=== PATIENT | female | born 1970 | race Caucasian/White ===

== ENCOUNTER 2017-10-10 07:27 | Emergency (ER) | payer MEDICARE ==
[2017-10-10 07:45] VITALS: O2SAT 99
--- NOTE | 2017-10-10 07:49 | ERPHSYRPT ---
- History of Present Illness Time Seen by Provider: 10/10/17 07:44 Source: patient Exam Limitations: no limitations Physician History: Pt has been c/o aching, pain in both lower extremities for one week. She states , she lives in a basement, has to take 5-6 steps to get down frequently, and started feeling some swelling and pain behind her knees, as well as diffuse aching in the whole leg on both sides. She denies fall, direct or indirect trauma, but has frequent back pain, without history of surgeries or major accident, injury to her back in the past. She denies abdominal or chest pain, SOB, fever,. nausea or other complaints, she has been taking Aleve for the pain. She is also c/o restless leg symptoms of her left leg recently at night. Method of Injury: unknown Quality: constant, aching Severity of Pain-Max: moderate Severity of Pain-Current: moderate Lower Extremities Pain: hip: bilateral, leg: bilateral, knee: bilateral, thigh: bilateral, foot: bilateral Modifying Factors: Improves With: nothing Associated Symptoms: none Allergies/Adverse Reactions: No Known Drug Allergies Allergy (Verified 10/10/17 07:45) Home Medications: Pantoprazole Sodium 40 mg PO DAILY 01/11/16 [History] Paroxetine HCl [Paxil] 40 mg PO DAILY 01/11/16 [History] Amitriptyline HCl 25 mg DAILY 10/10/17 [History] Hx Tetanus, Diphtheria Vaccination/Date Given: No Hx Influenza Vaccination/Date Given: No Hx Pneumococcal Vaccination/Date Given: No - Review of Systems Constitutional: No Symptoms Respiratory: No Symptoms Cardiac: No Symptoms Abdominal/Gastrointestinal: No Symptoms Musculoskeletal: Back Pain Skin: No Symptoms All Other Systems: Reviewed and Negative - Past Medical History Pertinent Past Medical History: Yes Neurological History: Seizures ENT History: No Pertinent History Cardiac History: No Pertinent History Respiratory History: No Pertinent History Endocrine Medical History: No Pertinent History Musculoskeletal History: Degenerative Disk Disease GI Medical History: GERD History: Other Psycho-Social History: Anxiety, Depression Female Reproductive Disorders: No Pertinent History Other Medical History: HOLE IN BLADDER FROM A FORCEPT DELIVERY 1995 - Past Surgical History Past Surgical History: Yes Musculoskeletal: Orthopedic Surgery Female Surgical History: Tubal Ligation - Social History Smoking Status: Never smoker Exposure to second hand smoke: No Drug Use: none Patient Lives Alone: No - Female History Hx Now: No - Nursing Vital Signs Nursing Vital Signs: Initial Vital Signs Temperature 97.0 F 10/10/17 07:37 Pulse Rate 81 10/10/17 07:37 Respiratory Rate 18 10/10/17 07:37 Blood Pressure 114/65 10/10/17 07:37 O2 Sat by Pulse Oximetry 99 10/10/17 07:37 Pain Scale Pain Intensity 8 - Physical Exam General Appearance: no apparent distress Eyes, Ears, Nose, Throat Exam: normal ENT inspection Neck Exam: normal inspection, non-tender Cardiovascular/Respiratory Exam: chest non-tender, normal breath sounds, regular rate/rhythm, heart sounds normal, no JVD, normal peripheral pulses Gastrointestinal/Abdominal Exam: non-tender, soft, no organomegaly Back Exam: normal inspection, other (no localized tenderness, or muscle spasms, straight leg raising normal on both sides., good equal strength.), No CVA tenderness, No vertebral tenderness, No rash Legs Exam: bilateral leg: normal inspection, pain (diffuse aching, no localized tenderness) Ankle Exam: bilateral ankle: normal inspection Foot Exam: bilateral foot: normal inspection DTR - Lower Extremities Exam: knee (R): 3+, knee (L): 3+, ankle (R): 3+, ankle ( L): 3+ Neuro/Tendon Exam: normal sensation, normal motor functions Mental Status Exam: alert, oriented x 3, cooperative Skin Exam: normal color, warm, dry, No rash SpO2 Interpretation: normal Oxygen Delivery: Room Air - Course Nursing assessment & vital signs reviewed: Yes - Radiology Exams L-Spine X-ray Interpretation: Interpreted by me, Negative - Radiology Ultrasound Exam Venous Lower Extremity Ultrasound: tele radiology report, negative Ordered Tests: Active Orders 24 hr Category Date Time Status LUMBAR LIMITED (2 OR 3 VIEWS) Stat Exams 10/10/17 07:42 Taken VENOUS BILATERAL EXTREMITY [US] Stat Exams 10/10/17 08:48 Completed - Progress Progress: unchanged - Departure Time of Disposition: 09:06 Departure Disposition: Home Clinical Impression: Sciatica Qualifiers: Laterality: unspecified laterality Qualified Code(s): M54.30 - Sciatica, unspecified side Condition: Stable Critical Care Time: No Additional Instructions: Rest x 3-4 days, apply moist heat to painful area, return if severe pain, swelling, sudden weakness, numbness of the legs, or sudden loss of bladder, bowel control! Follow up with your PCP in 1 week! Prescriptions: Cyclobenzaprine HCl [Flexeril] 10 mg PO TID #30 tablet Methylprednisolone Packet [Medrol Dosepack] 4 mg PO UD #1 packet
--- NOTE | 2017-10-10 08:57 | XRAY ---
Indication: Bilateral leg pain. Two-dimensional sonogram and color Doppler imaging of the major venous vessels of the left and right leg was performed. Comparison: None No thrombus seen in the examined deep venous vessels of the left and right leg including greater saphenous veins. Veins demonstrate normal compressibility. Venous waveforms are normal with and without augmentation. Impression: Left and right legs negative for DVT.
--- NOTE | 2017-10-10 09:05 | XRAY ---
Indication: Low back and bilateral hip pain. No known injury. Comparison: None 3 views of the lumbar spine demonstrate 5 lumbar vertebral segments in normal alignment with minimal multilevel endplate spurring and mild right L5-S1 degenerative facet arthropathy. Disc spaces maintained. No acute fracture, subluxation, or soft tissue abnormalities. Impression: Degenerative changes in a otherwise negative lumbar spine
[2017-10-10 10:05] VITALS: BP 120/59; PULSE 76
== END 2017-10-10 10:04 | disposition home or self-care (01) ==
LOC: ED 07:27
DX: M54.30 Sciatica, unspecified side (principal); M79.605 Pain in left leg; M79.604 Pain in right leg; M25.462 Effusion, left knee; M25.461 Effusion, right knee
CPT/HCPCS: 72100; 93970; 99283; 99284

== ENCOUNTER 2018-02-03 02:26 | Emergency (ER) | payer MEDICARE ==
--- NOTE | 2018-02-03 03:09 | ERPHSYRPT ---
- History of Present Illness Time Seen by Provider: 02/03/18 02:50 Source: patient Exam Limitations: no limitations Patient Subjective Stated Complaint: toothache pain on bottom left that radiates to her ear and down her throat, short of breath, dizzy, Triage Nursing Assessment: Pt c/o of toothache pain on bottom left that radiates to her ear and down her throat, shortness of breath, dizzy, BP 163/107 , doesn't appear to be in any distress Physician History: 47 y/o white female presents with dental pain, dizziness and soa. all 3 sx began approx 10 hours ago with dental pain began first. no headache, no head injury, no cp, no abd pain. never had this complex of sx before. Timing/Duration: yesterday, hour(s) (approx 10 hours ago) Severity: mild Modifying Factors: Improves With: nothing Associated Symptoms: nausea, shortness of breath, No vomiting, No abdominal pain , No chest pain, No fever, No headaches Allergies/Adverse Reactions: No Known Drug Allergies Allergy (Verified 02/03/18 02:41) Home Medications: Pantoprazole Sodium 40 mg PO DAILY 01/11/16 [History] Paroxetine HCl [Paxil] 40 mg PO DAILY 01/11/16 [History] Amitriptyline HCl 25 mg DAILY 10/10/17 [History] Hx Tetanus, Diphtheria Vaccination/Date Given: No Hx Influenza Vaccination/Date Given: No Hx Pneumococcal Vaccination/Date Given: No - Review of Systems Constitutional: No Symptoms, No Fever, No Fatigue, No Weakness Eyes: No Symptoms, No Discharge, No Eye Pain Ears, Nose, & Throat: No Symptoms, No Ear Pain Respiratory: No Symptoms, Dyspnea, No Cough, No Stridor, No Wheezing Cardiac: No Chest Pain, No Palpitations, No Syncope Abdominal/Gastrointestinal: Nausea, No No Symptoms, No Abdominal Pain, No Vomiting, No Diarrhea, No Constipation Genitourinary Symptoms: No Symptoms, No Dysuria, No Frequency, No Hematuria Musculoskeletal: No Symptoms, No Back Pain, No Neck Pain, No Deformity Skin: No Symptoms, No Cellulitis, No Rash Neurological: Dizziness, No Focal Weakness, No Headache Psychological: No Symptoms, No Alcohol Abuse, No Drug Abuse, No Anxiety Endocrine: No Symptoms, No Polyuria, No Polydipsia Hematologic/Lymphatic: No Symptoms, No Anemia Immunological/Allergic: No Symptoms All Other Systems: Reviewed and Negative - Past Medical History Pertinent Past Medical History: Yes Neurological History: Seizures, Other (chronic facial palsy since ) ENT History: No Pertinent History Cardiac History: No Pertinent History Respiratory History: No Pertinent History Endocrine Medical History: No Pertinent History Musculoskeletal History: Degenerative Disk Disease GI Medical History: GERD History: Other Psycho-Social History: Anxiety, Depression Female Reproductive Disorders: No Pertinent History Other Medical History: HOLE IN BLADDER FROM A FORCEPT DELIVERY 1995 - Past Surgical History Past Surgical History: Yes Genitourinary: Other Musculoskeletal: Orthopedic Surgery Female Surgical History: Tubal Ligation Other Surgical History: bladder repair - Social History Smoking Status: Never smoker Exposure to second hand smoke: No Drug Use: none Patient Lives Alone: Yes - Female History Hx Now: No - Nursing Vital Signs Nursing Vital Signs: Initial Vital Signs Temperature 98.5 F 02/03/18 02:28 Pulse Rate 80 02/03/18 02:28 Blood Pressure 163/107 02/03/18 02:28 O2 Sat by Pulse Oximetry 96 02/03/18 02:28 Pain Scale Pain Intensity 10 - Physical Exam General Appearance: no apparent distress, alert, anxiety Eye Exam: PERRL/EOMI, eyes nml inspection Ears, Nose, Throat Exam: normal ENT inspection, TMs normal, moist mucous membranes Neck Exam: normal inspection, non-tender, supple, full range of motion, No meningismus Respiratory Exam: normal breath sounds, lungs clear, airway intact, No chest tenderness, No respiratory distress, No accessory muscle use, No rhonchi, No wheezing, No stridor Cardiovascular Exam: regular rate/rhythm, normal heart sounds, normal peripheral pulses Gastrointestinal/Abdomen Exam: soft, normal bowel sounds, No tenderness, No distention, No guarding Pelvic Exam: not done Rectal Exam: not done Back Exam: normal inspection, normal range of motion, No CVA tenderness, No vertebral tenderness Extremity Exam: normal inspection, normal range of motion, pelvis stable Neurologic Exam: alert, oriented x 3, cooperative, caterer's aide II-XII nml as tested, nml station & gait Skin Exam: normal color, warm, dry Lymphatic Exam: No adenopathy SpO2 Interpretation: normal SpO2: 96 Oxygen Delivery: Room Air - Course Nursing assessment & vital signs reviewed: Yes EKG Interpreted by Me: RATE (84), Sinus Rhythm, NORMAL AXIS, NORMAL INTERVALS, NORMAL QRS Ordered Tests: Active Orders 24 hr Category Date Time Status CBC W DIFF Stat Lab 02/03/18 03:15 Completed CMP Stat Lab 02/03/18 03:15 Completed TROPONIN Q3H Lab 02/03/18 03:15 Completed TROPONIN Q3H Lab 02/03/18 06:15 Ordered TROPONIN Q3H Lab 02/03/18 09:15 Ordered TROPONIN Q3H Lab 02/03/18 12:15 Ordered TROPONIN Q3H Lab 02/03/18 15:15 Ordered UA W/ MICROSCOPIC Stat Lab 02/03/18 04:50 Completed Medication Summary Discontinued Medications Generic Name Dose Route Start Last Admin Trade Name Freq PRN Reason Stop Dose Admin Sodium Chloride 1,000 mls @ 999 mls/hr 02/03/18 03:14 02/03/18 04:58 Sodium Chloride 0.9% 1000 Ml IV 02/03/18 04:14 Infused .Q1H1M STA Infusion Sodium Chloride Confirm 02/03/18 03:36 Sodium Chloride 0.9% 1000 Ml Administered 02/03/18 03:37 Dose 1,000 mls @ ud .ROUTE .STK-MED ONE Ondansetron HCl 4 mg 02/03/18 03:14 02/03/18 03:40 Zofran 4 Mg/2 Ml Vial IV 02/03/18 03:15 4 mg STAT ONE Administration Ondansetron HCl Confirm 02/03/18 03:36 Zofran 4 Mg/2 Ml Vial Administered 02/03/18 03:37 Dose 4 mg .ROUTE .STK-MED ONE Penicillin V Potassium 500 mg 02/03/18 03:45 02/03/18 03:50 Pen-Vee K PO 02/03/18 03:46 500 mg STAT ONE Administration Penicillin V Potassium Confirm 02/03/18 03:48 Pen-Vee K Administered 02/03/18 03:49 Dose 500 mg .ROUTE .STK-MED ONE Lab/Rad Data: Laboratory Result Diagrams 02/03/18 03:15 02/03/18 03:15 Laboratory Results 02/03/18 02/03/18 02/03/18 Range/Units 04:50 03:15 03:15 WBC (4.0-10.5) K/mm3 RBC (4.1-5.4) M/mm3 Hgb (12.0-16.0) gm/dl Hct (35-47) % MCV (78-100) fl MCH (26-32) pg MCHC (32-36) g/dl RDW (11.5-14.0) % Plt Count (150-450) K/mm3 MPV (6-9.5) fl Gran % (36.0-66.0) % Eos # (Auto) (0-0.5) Absolute Lymphs (auto) (1.0-4.6) Absolute Monos (auto) (0.0-1.3) Lymphocytes % (24.0-44.0) % Monocytes % (0.0-12.0) % Eosinophils % (0.00-5.0) % Basophils % (0.0-0.4) % Absolute Granulocytes (1.4-6.9) Basophils # (0-0.4) Sodium 141 (137-145) mmol/L Potassium 3.8 (3.5-5.1) mmol/L Chloride 105 (98-107) mmol/L Carbon Dioxide 24 (22-30) mmol/L Anion Gap 15.5 H (5-15) MEQ/L BUN 10 (7-17) mg/dL Creatinine 0.72 (0.52-1.04) mg/dL Estimated GFR > 60.0 ML/MIN Glucose 131 H (74-106) mg/dL Calcium 9.1 (8.4-10.2) mg/dL Total Bilirubin 0.30 (0.2-1.3) mg/dL AST 15 (14-36) U/L ALT 18 (0-35) U/L Alkaline Phosphatase 80 (38-126) U/L Troponin I < 0.012 (0.000-0.034) ng/mL Serum Total Protein 7.2 (6.3-8.2) g/dL Albumin 4.1 (3.5-5.0) g/dL Ur Collection Type CCMS Urine Color YELLOW (YELLOW) Urine Appearance CLEAR (CLEAR) Urine pH 5.0 (5-6) Ur Specific [place] 1.020 (1.005-1.025) Urine Protein NEGATIVE (Negative) Urine Ketones NEGATIVE (NEGATIVE) Urine Blood 250 (0-5) Yon/ul Urine Nitrite NEGATIVE (NEGATIVE) Urine Bilirubin NEGATIVE (NEGATIVE) Urine Urobilinogen NORMAL (0-1) mg/dL Ur Leukocyte Esterase NEGATIVE (NEGATIVE) Urine Microscopic RBC 25-50 (0-2) /HPF Urine Microscopic WBC 0-2 (0-5) /HPF Ur Epithelial Cells FEW (FEW) /HPF Urine Bacteria RARE (NEGATIVE) /HPF Urine Culture Reflexed NO (NO) Urine Glucose NEGATIVE (NEGATIVE) mg/dL Specimen Received 02-03-18 0501 02/03/18 Range/Units 03:15 WBC 10.2 (4.0-10.5) K/mm3 RBC 4.42 (4.1-5.4) M/mm3 Hgb 13.0 (12.0-16.0) gm/dl Hct 39.1 (35-47) % MCV 88.5 (78-100) fl MCH 29.4 (26-32) pg MCHC 33.2 (32-36) g/dl RDW 14.0 (11.5-14.0) % Plt Count 258 (150-450) K/mm3 MPV 10.7 H (6-9.5) fl Gran % 61.4 (36.0-66.0) % Eos # (Auto) 0.19 (0-0.5) Absolute Lymphs (auto) 3.07 (1.0-4.6) Absolute Monos (auto) 0.68 (0.0-1.3) Lymphocytes % 30.0 (24.0-44.0) % Monocytes % 6.6 (0.0-12.0) % Eosinophils % 1.9 (0.00-5.0) % Basophils % 0.1 (0.0-0.4) % Absolute Granulocytes 6.29 (1.4-6.9) Basophils # 0.01 (0-0.4) Sodium (137-145) mmol/L Potassium (3.5-5.1) mmol/L Chloride (98-107) mmol/L Carbon Dioxide (22-30) mmol/L Anion Gap (5-15) MEQ/L BUN (7-17) mg/dL Creatinine (0.52-1.04) mg/dL Estimated GFR ML/MIN Glucose (74-106) mg/dL Calcium (8.4-10.2) mg/dL Total Bilirubin (0.2-1.3) mg/dL AST (14-36) U/L ALT (0-35) U/L Alkaline Phosphatase (38-126) U/L Troponin I (0.000-0.034) ng/mL Serum Total Protein (6.3-8.2) g/dL Albumin (3.5-5.0) g/dL Ur Collection Type Urine Color (YELLOW) Urine Appearance (CLEAR) Urine pH (5-6) Ur Specific [place] (1.005-1.025) Urine Protein (Negative) Urine Ketones (NEGATIVE) Urine Blood (0-5) Yon/ul Urine Nitrite (NEGATIVE) Urine Bilirubin (NEGATIVE) Urine Urobilinogen (0-1) mg/dL Ur Leukocyte Esterase (NEGATIVE) Urine Microscopic RBC (0-2) /HPF Urine Microscopic WBC (0-5) /HPF Ur Epithelial Cells (FEW) /HPF Urine Bacteria (NEGATIVE) /HPF Urine Culture Reflexed (NO) Urine Glucose (NEGATIVE) mg/dL Specimen Received - Progress Progress: improved, re-examined Progress Note: 02/03/18 05:16 pt states she is feeling a little better. pt was asleep. denies cp. Counseled pt/family regarding: lab results, diagnosis, need for follow-up - Departure Time of Disposition: 05:16 Departure Disposition: Home Clinical Impression: Pain, dental, Dizziness Condition: Stable Critical Care Time: No Referrals: MIGUEL STEWART MD [Primary Care Provider] - Additional Instructions: drink plenty of fluids. follow up with dentist for your dental pain. follow up with your primary doctor for management of your other issues. Prescriptions: Penicillin V Potassium 500 mg PO QID #28 tablet
[2018-02-03 03:35] LABS: ALBUMIN 4.1 g/dL (3.5-5.0); ALKALINE PHOSPHATASE 80 U/L (38-126); ANION GAP 15.5 MEQ/L (5-15); BLOOD UREA NITROGEN 10 mg/dL (7-17); CHLORIDE 105 mmol/L (98-107); Calcium 9.1 mg/dL (8.4-10.2); Carbon Dioxide 24 mmol/L (22-30); Creatinine 1 0.72 mg/dL (0.52-1.04); Glucose 131 mg/dL (74-106); Potassium 3.8 mmol/L (3.5-5.1); SGOT/AST 15 U/L (14-36); SGPT/ALT 18 U/L (0-35); SODIUM 141 mmol/L (137-145); Total Protein 7.2 g/dL (6.3-8.2)
[2018-02-03] MEDS ORDERED: Sodium Chloride 0.9% 1000 ML 1,000 ML ONE (03:36)
[2018-02-03] MEDS ORDERED: Zofran 4 MG/2 ML VIAL ONE (03:36)
[2018-02-03 03:39] LABS: BASOPHIL % 0.1 % (0.0-0.4); Basophil (Absolute #) 0.01 (0-0.4); Eosinophil % 1.9 % (0.00-5.0); Eosinophil (Absolute #) 0.19 (0-0.5); Granulocyte Absolute (ANC) 6.29 (1.4-6.9); Granulocytes % 61.4 % (36.0-66.0); Hematocrit 39.1 % (35-47); Lymphocyte (Absolute #) 3.07 (1.0-4.6); Mean Cell Volume 88.5 fl (78-100); Mean Corpuscular Hemoglobin 29.4 pg (26-32); Mean Corpuscular Hgb Concent. 33.2 g/dl (32-36); Mean Platelet Volume 10.7 fl (6-9.5); Monocyte (Absolute #) 0.68 (0.0-1.3); Monocytes % 6.6 % (0.0-12.0); Platelet Count 258 K/mm3 (150-450); Red Blood Count 4.42 M/mm3 (4.1-5.4); White Blood Count 10.2 K/mm3 (4.0-10.5)
[2018-02-03] MEDS: Sodium Chloride 0.9% 1000 ML 1,000 ML IV STA (03:40)
[2018-02-03] MEDS: Zofran 4 MG/2 ML VIAL IV ONE (03:40)
[2018-02-03] MEDS ORDERED: PEN-VEE K ONE (03:48)
[2018-02-03] MEDS: PEN-VEE K PO ONE (03:50)
[2018-02-03 04:57] VITALS: BP 174/95; PULSE 74
[2018-02-03 05:05] LABS: Appearance CLEAR (CLEAR); Bilirubin NEGATIVE (NEGATIVE); Blood 250 Ery/ul (0-5); Glucose NEGATIVE (NEGATIVE); Ketones NEGATIVE (NEGATIVE); Leukocyte Esterase NEGATIVE (NEGATIVE); Nitrite NEGATIVE (NEGATIVE); Protein,Urine Dip NEGATIVE (Negative); Urobilinogen NORMAL mg/dL (0-1); WBC 0-2 /HPF (0-5)
[2018-02-03 05:06] LABS: Bacteria RARE /HPF (NEGATIVE); Epithelial Cells FEW /HPF (FEW); RBC 25-50 /HPF (0-2)
[2018-02-03 05:18] VITALS: O2SAT 96
== END 2018-02-03 05:28 | disposition home or self-care (01) ==
LOC: ED 02:26
DX: K08.89 Other specified disorders of teeth and supporting structures (principal); R42 Dizziness and giddiness; R11.0 Nausea; Z79.899 Other long term (current) drug therapy
CPT/HCPCS: 36415; 80053; 81000; 84484; 85025; 96360; 96374; 99284; J2405; A9270-GY